=== PATIENT | female | born 1980 | race American Indian/Alaskan Native ===

== ENCOUNTER 2020-02-22 12:07 | Outpatient (CLI) | payer BC | END 2020-02-22 12:08 | disposition home or self-care (01) | LOC: MAMMO 12:07 | PROVIDERS: ATTEND Advanced Practice Midwife | DX: Z12.31 Encounter for screening mammogram for malignant neoplasm of breast (principal) | CPT/HCPCS: 77067 ==

== ENCOUNTER 2021-12-30 12:03 | Outpatient (CLI) | payer BC ==
--- NOTE | 2021-12-30 14:16 | XRay Report ---
BILATERAL KNEES 3 VIEWS INDICATION / CLINICAL INFORMATION: M25.569 PAIN IN UNSPECIFIED KNEE COMPARISON: None available. FINDINGS: BONES and JOINT(S): No acute fracture or subluxation. No significant arthritis. SOFT TISSUES: No significant abnormality. ADDITIONAL FINDINGS: None. IMPRESSION: No significant abnormality of the knees. Signer Name: Luis Lubin MD Signed: 12/30/2021 2:12 PM Workstation Name: [id number]
== END 2021-12-30 12:04 | disposition home or self-care (01) ==
LOC: XRAY 12:03
PROVIDERS: ATTEND Orthopaedic Surgery
DX: M25.562 Pain in left knee (principal); M25.561 Pain in right knee
CPT/HCPCS: 73565